=== PATIENT | female | born 1945 | race Caucasian/White ===

== ENCOUNTER 2019-02-16 12:50 | Emergency (ER) | payer OTHER ==
[~2019-02-16] VITALS: Ht 162.6 cm; Wt 62.6 kg
[~2019-02-16 12:50] MED LIST: ADULT LOW DOSE81 MG PO; ALDACTONE25 MG PO; ALLEGRA ALLERG180 MG PO; APAP500 PO; ASPIRIN EC81 M1 PO; AZITHROMYCIN 2250 MG PO; BACTRIM DS TAB1 EACH PO; BIOTENE DRY MO237 ML SWISH&SPIT; CALCIUM 600 +1 EAC1 PO; CITRUCEL CLEAR539 G1 PO; CLONAZEPAM 0.50.5 M1 PO; CLONAZEPAM 1 MG1 M1 PO; CLONAZEPAM PO; COLACE100 MG PO; COREG PO; ENOXAPARIN30 MG/0.3 SQ; FAMOTIDINE20 MG PO; KLONOPIN PO; LANOXIN 0.120.125 M1; LANOXIN 0.120.125 M1 PO; LANOXIN 0.250.25 MG; LANOXIN 0.250.25 MG PO; LASIX 40 MG TAB40 M1 PO; LISINOPRIL2.5 MG PO; LOPRESSOR25 PO; METOPROLOL TARTRATE PO; MIRALAX255 GM; MULTAQ400 MG PO; NORCO 5-325 TA1 EACH PO; NORTRIPTYLINE H10 M2 PO; NORTRIPTYLINE H25 M3 PO; NYSTATIN 1100000 U/M; OXYBUTYNIN 5 MG5 M1 PO; PACERONE 200 M200 M1 PO; PAMELOR PO; PEPCID AC20 M1 PO; PEPCID20 MG PO; PERIDEX 0.12%473 M1 SWISH&SPIT; PRADAXA150 MG PO; PREVACID15 MG PO; SINGULAIR 10 MG10 M1 PO; SOTALOL 120 MG120 M1 PO; SOTALOL 120 MG120 MG PO; SOTALOL120 MG PO; SOTALOL160 MG PO; SOTALOL240 MG PO; SOTALOL80 MG PO; TYLENOL EX-STR500 M2 PO; VESICARE; VITAMIN D1000 UNI1 PO; ZOCOR40 MG PO; ZOLAIR; ZYRTEC 10 MG TA10 MG PO
[2019-02-16 13:37] LABS: URINE BILIRUBIN NEGATIVE (Negative); URINE BLOOD TRACE (Negative); URINE CLARITY CLEAR; URINE COLOR YELLOW; URINE GLUCOSE-RANDOM* NEGATIVE (Negative); URINE KETONES NEGATIVE (Negative); URINE LEUKOCYTES-REFLEX NEGATIVE (Negative); URINE NITRITE-REFLEX NEGATIVE (Negative); URINE PROTEIN (DIPSTICK) NEGATIVE (Negative); URINE SPECIFIC GRAVITY <= 1.005 (1.005-1.035); URINE UROBILINOGEN 0.2 E.U./dl (0.2-1.0)
[2019-02-16 14:22] LABS: ABSOLUTE NEUTROPHILS 3.5 thou/uL (1.4-8.2); BASOPHILS 0.7 % (0.0-2.0); EOSINOPHILS 2.9 % (0.0-3.0); HEMATOCRIT 45.8 % (37.0-47.0); HEMOGLOBIN 15.2 gm/dL (12.0-15.0); LYMPHOCYTES 27.8 % (24.0-44.0); MCH 29.7 pg (26.0-34.0); MCHC 33.2 g/dL (28.0-37.0); MCV 89.3 fL (80.0-100.0); MONOCYTES 8.5 % (1.0-8.0); PLATELET COUNT 208 thou/uL (150-400); POLYS 60.1 % (36.0-66.0); RBC 5.12 mil/uL (4.20-5.00); RDW 13.9 % (10.5-14.5); WBC 5.8 thou/uL (4.0-11.0)
[2019-02-16 14:36] LABS: APTT 33.2 Seconds (24.5-32.8); PROTIME 10.5 Seconds (9.3-11.4)
[2019-02-16 15:13] LABS: CALCIUM 9.3 mg/dL (8.5-10.1); CREATININE 0.8 mg/dL (0.6-1.0)
[2019-02-16 15:20] LABS: ALBUMIN 3.3 g/dL (3.4-5.0); TOTAL BILIRUBIN 0.5 mg/dL (<0.1-1.0); TOTAL PROTEIN 7.2 g/dL (6.4-8.2)
[2019-02-16 15:32] LABS: MAGNESIUM 2.2 mg/dL (1.8-2.4)
[2019-02-16] MEDS ORDERED: VENTOLIN HFA 1818 GM INH (15:35)
[2019-02-16 16:25] VITALS: BP 126/93
--- NOTE | 2019-02-17 11:03 | EKG ---
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
== END 2019-02-16 16:25 | disposition home or self-care (01) ==
LOC: ER 12:50
PROVIDERS: Emergency Medicine
DX: F41.9 Anxiety disorder, unspecified (principal); R06.02 Shortness of breath; I48.91 Unspecified atrial fibrillation; Z90.49 Acquired absence of other specified parts of digestive tract; Z95.0 Presence of cardiac pacemaker; Z98.86 Personal history of breast implant removal; Z87.891 Personal history of nicotine dependence; Z88.0 Allergy status to penicillin; Z88.6 Allergy status to analgesic agent; Z88.8 Allergy status to other drugs, medicaments and biological substances

== ENCOUNTER 2020-02-01 12:28 | Emergency (ER) | payer OTHER ==
[~2020-02-01] VITALS: Ht 162.6 cm; Wt 61.2 kg
[~2020-02-01 12:28] MED LIST changes: +VENTOLIN HFA 1818 GM INH
[2020-02-01 13:36] LABS: EOSINOPHILS 3.9 % (0.0-3.0); HEMOGLOBIN 14.3 gm/dL (12.0-15.0)
[2020-02-01 13:37] LABS: ABSOLUTE NEUTROPHILS 3.6 thou/uL (1.4-8.2); BASOPHILS 0.7 % (0.0-2.0); HEMATOCRIT 42.8 % (37.0-47.0); MCH 30.4 pg (26.0-34.0); MCHC 33.5 g/dL (28.0-37.0); MCV 90.7 fL (80.0-100.0); PLATELET COUNT 184 thou/uL (150-400); POLYS 62.4 % (36.0-66.0); RBC 4.71 mil/uL (4.20-5.00); RDW 14.4 % (10.5-14.5); WBC 5.8 thou/uL (4.0-11.0)
[2020-02-01 13:51] LABS: ANION GAP 8 mmol/L (7-16); BUN 22 mg/dL (7-18); CALCIUM 9.4 mg/dL (8.5-10.1); CHLORIDE 105 mmol/L (98-107); CO2 27 mmol/L (21-32); CREATININE 0.8 mg/dL (0.6-1.0); GLUCOSE 91 mg/dL (74-106); POTASSIUM 4.8 mmol/L (3.5-5.1); SODIUM 140 mmol/L (136-145)
[2020-02-01 13:54] LABS: APTT 26.8 Seconds (24.5-32.8); D-DIMER 0.2 ug/mLFEU (0.19-0.50); INR 1.1; PROTIME 10.9 Seconds (9.3-11.4)
[2020-02-01 13:57] LABS: ALBUMIN 3.5 g/dL (3.4-5.0); SGOT 16 U/L (15-37); SGPT 17 U/L (30-65); TOTAL BILIRUBIN 0.5 mg/dL (0.2-1.0); TROPONIN-I <0.06 ng/mL (<0.06)
[2020-02-01 16:11] VITALS: BP 121/73
[2020-02-01] MEDS ORDERED: CARVEDILOL6.25 M1 PO (16:15)
[2020-02-01] MEDS ORDERED: FUROSEMIDE 20 M20 M1 PO (16:15)
--- NOTE | 2020-02-04 07:20 | EKG ---
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1945 Requested By: Kate Fu Order Number: [id number] MD: Boo Saucedo Measurements Intervals [place] Rate: 70 P: FL: QRS: -65 QRSD: 154 T: 108 QT: 467 QTc: 504 Interpretive Statements Atrial fibrillation Ventricular pacing Artifact in lead(s) I,II,III,aVR,aVL,V3,V4,V5,V6 Compared to ECG 02/16/2019 13:52:05 No significant change was found Electronically Signed On 02-04-2020 7:20:18 CDT by Boo Saucedo [email or web address] <ELECTRONICALLY SIGNED> By: Boo Saucedo MD, FAC 02/04/20 0720 1334 1334 Boo Saucedo MD, FAC /EPI
== END 2020-02-01 16:34 | disposition home or self-care (01) ==
LOC: ER 12:28
PROVIDERS: Nurse Practitioner Family
DX: R06.00 Dyspnea, unspecified (principal); I48.91 Unspecified atrial fibrillation; Z90.89 Acquired absence of other organs; Z95.0 Presence of cardiac pacemaker; Z87.891 Personal history of nicotine dependence; Z79.899 Other long term (current) drug therapy; Z88.0 Allergy status to penicillin; Z88.5 Allergy status to narcotic agent; Z88.8 Allergy status to other drugs, medicaments and biological substances; Z20.828 Contact with and (suspected) exposure to other viral communicable diseases